=== PATIENT | male | born 1995 | race Caucasian/White ===

== ENCOUNTER 2018-07-22 23:58 | Inpatient (IN) | payer OTHER ==
[~2018-07-22] VITALS: Ht 185.4 cm; Wt 83.9 kg
[2018-07-23] VITALS (12 sets, daily range): BP systolic 106–153; BP diastolic 59–95
[2018-07-23 00:23] LABS: ABSOLUTE BASOPHILS 0.1 thou/uL (0.0-0.2); ABSOLUTE EOSINOPHILS 0.3 thou/uL (0.0-0.7); ABSOLUTE LYMPHOCYTES 1.6 thou/uL (0.8-5.3); ABSOLUTE MONOCYTES 0.8 thou/uL (0.0-1.2); ABSOLUTE NEUTROPHILS 6.1 thou/uL (1.6-8.1); EOSINOPHILS 3.9 %; HEMATOCRIT 47.9 % (42.0-52.0); HEMOGLOBIN 15.6 gm/dL (14.0-18.0); LYMPHOCYTES 17.9 %; MCH 27.4 pg (26.0-34.0); MCHC 32.5 g/dL (28.0-37.0); MCV 84.4 fL (80.0-100.0); MONOCYTES 8.6 %; MPV 7.3 fl. (7.2-11.1); NUCLEATED RBCS 0 /100WBC; PLATELET COUNT* 340 thou/uL (150-400); POLYS 68.6 %; RBC 5.67 mil/uL (4.50-6.00); WBC 8.9 thou/uL (4.0-11.0)
[2018-07-23 00:32] LABS: CALCIUM 8.6 mg/dL (8.5-10.1); CREATININE 0.8 mg/dL (0.6-1.3); POTASSIUM 4.1 mmol/L (3.5-5.1)
[2018-07-23 00:37] LABS: ALBUMIN 3.9 g/dL (3.4-5.0); MAGNESIUM 1.7 mg/dL (1.8-2.4); TOTAL BILIRUBIN 0.6 mg/dL (<0.1-1.0); TOTAL PROTEIN 7.9 g/dL (6.4-8.2)
[2018-07-23 01:10] LABS: URINE BILIRUBIN NEGATIVE (Negative); URINE BLOOD NEGATIVE (Negative); URINE CLARITY CLEAR; URINE COLOR YELLOW; URINE GLUCOSE-RANDOM NEGATIVE (Negative); URINE KETONES NEGATIVE (Negative); URINE LEUKOCYTES-REFLEX NEGATIVE (Negative); URINE NITRITE-REFLEX NEGATIVE (Negative); URINE PROTEIN NEGATIVE (Negative); URINE UROBILINOGEN 0.2 E.U./dl (0.2-1.0)
[2018-07-23 03:01] LABS: AMP/METHAMP Negative (Negative); BARBITURATES Negative (Negative); BENZODIAZEPINES Negative (Negative); COCAINE Negative (Negative); METHADONE Negative (Negative); OPIATES Negative (Negative); PCP Negative (Negative); THC POSITIVE (Negative)
[2018-07-23 03:22] LABS: PROTIME 9.9 Seconds (9.20-11.50)
[2018-07-23 03:37] LABS: PHOSPHORUS* 2.9 mg/dL (2.5-4.9)
[2018-07-23 03:38] LABS: AMMONIA < 10 umol/L (11-32)
--- NOTE | 2018-07-23 06:52 | NUR ---
Pt admitted from ED at 0245. Reports that he has been a heavy drinker since he was 16; drinks 1/5 of whiskey/tequila/cognac per day, or 24 beers per day. Reports he has had seizure before while withdrawing. Describes himself as functional alcoholic; is open about reporting his drinking habits. States he hopes to never drink again and requesting inpatient rehab once he discharges from the hospital because he has tried outpatient rehab before. States he is willing to take whatever time necessary to complete treatment and rehab. VSS. HR 40s-50s, SB. Will continue to monitor.
--- NOTE | 2018-07-23 07:10 | NUR ---
RN RESUMED CARE OF PT THIS AM. PT SLEEPING AT THIS TIME. VS STABLE. GOALS FOR TODAY INCLUDE MAINTAINING STABLE VS, KEEPING PT SAFE, AND MONITORING FOR SEIZURE AND ALCOHOL WITHDRAWAL.
--- NOTE | 2018-07-23 11:12 | NUR ---
Nutrition: Consult received for "wt loss 20# in 3 months." This is severe wt loss. Per ICU rounds, pt looks at a healthy wt. Pt stated he has h/o bulemia, but notrecently. He suffers form severe ETOHism, no insurance. Pt wants inpatient [facility]. Wt: 185#. Regular diet. Unintended wt loss R/T likely ETOHism AEB RN report in ICU rounds. RD will not order oral supplements at this time - pt appears at healthy wt. Mild risk. Poor nutrition-quality of life can be expected with ETOHism. RD will follow up on po intake, wt, labs, 07/28/18.
--- NOTE | 2018-07-23 11:27 | NUR ---
INTERDISICPLINARY ROUNDS: PT ADMITTED FROM [facility] W/ETOH WITHDRAWL. MET WITH PT AND S/O CONONR WHO HE PLANS TO RETURN HOME WITH. PT DROWSY, ABLE TO ANSWER SOME QUESTIONS. CONNOR ANSWERED MOST OF THEM. PT HAD BEEN LIVING WITH HIS GRANDMOTHER PRIOR TO ADMIT. CONNOR SAID FAMILY 'NOT SPEAKING WITH HIM RIGHT NOW.' PT ADMITS TO ETOH USE, WANTING TO STOP. PER CONNOR, HE HAS BEEN GOING TO OUTPT 3X/WK AT [facility] , MAY RETURN TO THAT, STATES IT HAS BEEN HELPFUL. SHE ALSO STATED THAT CLASSES HAD BEEN 'COURT ORDERED.' PT IS UNEMLOYED AT THIS TIME BUT JOB SEEKING. GAVE INFO AND DISCUSSED COMMUNITY RESOURCES, DRUG/ETOH RESOURCES AND F/U. CONNOR PLANS TO ASSIST PT WITH FINDING 'HELP.' SHE STATED SHE IS RECOVERING ALSO AND AWARE OF AREA RESOURCES.
--- NOTE | 2018-07-23 14:24 | NUR ---
PT TRANSFERRED TO ROOM 212. REPORT GIVEN TO RNJULIAN. PT VS STABLE. ATIVAN ADMINISTERED SCHEDULED AND PRN FOR ANXIETY. PT GIRLFRIEND AT BEDSIDE. PT TX WITH ALL BELONGINGS AND PAPER CHART. DENIES FURTHER QUESTIONS/CONCERNS.
--- NOTE | 2018-07-23 18:00 | NUR ---
PATIENT PROGRESSING TOWARDS GOALS. MOVED OUT OF ICU TODAY. CIWA SCORES CHARTED. VSS. ABLE TO SHOWER AND AMBULATE IN [place]. GIRLFRIEND IS PRESENT AND SUPPORTIVE
[2018-07-24 00:25] VITALS: BP 127/76
[2018-07-24 04:12] VITALS: BP 132/96
--- NOTE | 2018-07-24 04:15 | NUR ---
ASSUMED PT CARE AT 1930. ASSESSMENT COMPLETED CHARTED. ABLE TO MAKE NEEDS KNOWN. UP AD CLIFFORD, IVF INFUSING AT 100, PT CIWAS HAVE BEEN ABOUT 12-15 R/T N/V, AGITATION AND ANXIETY, A HEADACHE, AND TREMORS. PT IS BEGGING NOT TO GO BACK TO ICU. GAVE ATIVAN PER P.O. AND PRN FOR ANXIETY AND INCREASED CIWAS. GIRLFRIEND AT BEDSIDE. REFUSING ATIVAN AT TIMES STATING ITS NOT MAKING HIM SLEEP AND NOT WORKING. GETTING AGITATED WITH STAFF. WILL CONTINUE TO MONITOR.
[2018-07-24 05:33] LABS: CALCIUM 8.3 mg/dL (8.5-10.1); CREATININE 0.7 mg/dL (0.6-1.3); MAGNESIUM 1.9 mg/dL (1.8-2.4); PHOSPHORUS* 3.4 mg/dL (2.5-4.9); POTASSIUM 4.1 mmol/L (3.5-5.1)
[2018-07-24 05:36] LABS: ABSOLUTE BASOPHILS 0.1 thou/uL (0.0-0.2); ABSOLUTE EOSINOPHILS 0.2 thou/uL (0.0-0.7); ABSOLUTE LYMPHOCYTES 1.8 thou/uL (0.8-5.3); ABSOLUTE MONOCYTES 0.6 thou/uL (0.0-1.2); ABSOLUTE NEUTROPHILS 5.1 thou/uL (1.6-8.1); EOSINOPHILS 2.9 %; HEMATOCRIT 43.5 % (42.0-52.0); LYMPHOCYTES 22.7 %; MCH 27.5 pg (26.0-34.0); MCHC 32.3 g/dL (28.0-37.0); MCV 85.1 fL (80.0-100.0); MONOCYTES 7.8 %; MPV 7.9 fl. (7.2-11.1); NUCLEATED RBCS 0 /100WBC; PLATELET COUNT* 328 thou/uL (150-400); POLYS 65.6 %; RBC 5.11 mil/uL (4.50-6.00); RDW-CV 16.2 % (10.5-14.5); WBC 7.8 thou/uL (4.0-11.0)
[2018-07-24 08:00] VITALS: BP 131/86
--- NOTE | 2018-07-24 11:50 | NUR ---
VSS, ASSUMED CARE IN THE AM,ASSESSMENT PERFORMED AND CHARTED, FALL PRECAUTIONS IN PLACE NAD CALL LIGHT IN REACH, PT IS UP AD CLIFFORD ON RA AND TRACING SR ON THE MONITOR, PT DENIES ANY PAIN, PT HAS D/C ORDERS AT THIS TIME, I HAVE PRINTED, ORDERS, FILLED OUT ORDERS, AND REVIEWED D/C PLANS WITH PT, PT DENIES ANY QUESTIONS AT TIME OF D/C HOURLY ROUNDS COMPLETED, IV AND TELE MONITOR D/C
[2018-07-24 11:55] VITALS: BP 131/86
== END 2018-07-24 13:28 | disposition home or self-care (01) | DRG 103 ==
LOC: M.ERS 23:58 → M.TBA-ER 07-23 01:20 → M.ICU 07-23 02:02 → M.2W 07-23 14:24
PROVIDERS: Emergency Medicine; Internal Medicine; ADMIT Internal Medicine
DX: G43.A0 Cyclical vomiting, in migraine, not intractable (principal); F10.231 Alcohol dependence with withdrawal delirium; E86.0 Dehydration; F32.9 Major depressive disorder, single episode, unspecified; F17.210 Nicotine dependence, cigarettes, uncomplicated; F12.90 Cannabis use, unspecified, uncomplicated; Z79.899 Other long term (current) drug therapy

== ENCOUNTER 2021-04-11 04:35 | Emergency (ER) | payer OTHER ==
[~2021-04-11] VITALS: Ht 185.4 cm; Wt 94.8 kg
[2021-04-11 05:02] LABS: ABSOLUTE BASOPHILS 0.1 thou/uL (0.0-0.2); ABSOLUTE EOSINOPHILS 0.1 thou/uL (0.0-0.7); ABSOLUTE LYMPHOCYTES 3.2 thou/uL (0.8-5.3); ABSOLUTE MONOCYTES 0.5 thou/uL (0.0-1.2); ABSOLUTE NEUTROPHILS 2.6 thou/uL (1.6-8.1); BASOPHILS 1.3 %; EOSINOPHILS 1.1 %; HEMATOCRIT 47.1 % (42.0-52.0); HEMOGLOBIN 15.9 gm/dL (14.0-18.0); LYMPHOCYTES 49.7 %; MCH 28.4 pg (26.0-34.0); MCHC 33.8 g/dL (28.0-37.0); MCV 84.1 fL (80.0-100.0); MONOCYTES 7.6 %; MPV 7.1 fl. (7.2-11.1); NUCLEATED RBCS 0 /100WBC; PLATELET COUNT* 465 thou/uL (150-400); POLYS 40.3 %; RDW-CV 16.6 % (10.5-14.5); WBC 6.4 thou/uL (4.0-11.0)
[2021-04-11 05:11] LABS: CREATININE 0.8 mg/dL (0.6-1.3); POTASSIUM 4.1 mmol/L (3.5-5.1)
[2021-04-11 05:19] LABS: ALBUMIN 4.2 g/dL (3.4-5.0); MAGNESIUM 1.9 mg/dL (1.8-2.4); TOTAL BILIRUBIN 0.3 mg/dL (<0.1-1.0); TOTAL PROTEIN 7.9 g/dL (6.4-8.2)
[2021-04-11 13:19] VITALS: BP 109/59
== END 2021-04-11 13:20 | disposition still patient (30) ==
LOC: M.ERS 04:35
PROVIDERS: Emergency Medicine
DX: F10.129 Alcohol abuse with intoxication, unspecified (principal)

== ENCOUNTER 2021-09-03 23:27 | Emergency (ER) | payer OTHER ==
[~2021-09-03] VITALS: Ht 182.9 cm; Wt 88.5 kg
[2021-09-03 23:56] LABS: HEMOGLOBIN 17.8 gm/dL (14.0-18.0); MCH 28.8 pg (26.0-34.0); MCHC 33.1 g/dL (28.0-37.0); MPV 7.6 fl. (7.2-11.1); RBC 6.2 mil/uL (4.50-6.00); RDW-CV 16.6 % (10.5-14.5); WBC 6.9 thou/uL (4.0-11.0)
[2021-09-04 00:25] LABS: URINE BILIRUBIN NEGATIVE (Negative); URINE BLOOD NEGATIVE (Negative); URINE CLARITY CLEAR; URINE COLOR YELLOW; URINE GLUCOSE-RANDOM NEGATIVE (Negative); URINE KETONES NEGATIVE (Negative); URINE LEUKOCYTES NEGATIVE (Negative); URINE NITRITE NEGATIVE (Negative); URINE PROTEIN NEGATIVE (Negative); URINE SPECIFIC GRAVITY 1.015 (1.005-1.030)
[2021-09-04 00:33] LABS: CALCIUM 8.6 mg/dL (8.5-10.1); CREATININE 0.7 mg/dL (0.6-1.3)
[2021-09-04 00:35] LABS: POTASSIUM 4.1 mmol/L (3.5-5.1)
[2021-09-04 00:37] LABS: AMP/METHAMP Negative (Negative); BARBITURATES Negative (Negative); BENZODIAZEPINES Negative (Negative); COCAINE Negative (Negative); METHADONE Negative (Negative); OPIATES Negative (Negative); PCP Negative (Negative); THC POSITIVE (Negative)
[2021-09-04 00:38] LABS: ALBUMIN 4.4 g/dL (3.4-5.0); ALCOHOL 297 mg/dL (<10); SALICYLATE < 2.8 mg/dL (2.8-20.0); TOTAL BILIRUBIN 0.5 mg/dL (<0.1-1.0); TOTAL PROTEIN 8.6 g/dL (6.4-8.2)
[2021-09-04 00:39] LABS: ACETAMINOPHEN < 2 ug/mL (10-30)
[2021-09-04 11:05] VITALS: BP 129/77
--- NOTE | 2021-09-05 08:07 | EKG ---
[place] [address] ELECTROCARDIOGRAM REPORT Name: ABHISHEK DELUCA V Room: [facility]#: [id number] Admission: 09/03/21 Attend Phys: Discharge: 09/04/21 Date of : 89 Date of Service: 09/04/21 0003 Report #: [id number] THIS REPORT FOR: //name// [facility] ED Test Date: 2021-09-04 Test Time: 00:03:12 Pat Name: ABHISHEK DELUCA Department: Room: Gender: M Rn Delivery: : 1995 Requested By: Alison Cohen Order Number: [id number] MD: Luciano Mike Measurements Intervals [place] Rate: 65 P: 43 ME: 183 QRS: 84 QRSD: 108 T: 50 QT: 415 QTc: 432 Interpretive Statements Sinus rhythm ST elev, probable normal early repol pattern No previous ECG available for comparison Electronically Signed On 09-05-2021 8:06:53 CDT by Luciano Mike [email or web address] <ELECTRONICALLY SIGNED> By: Luciano Mike MD, FACC 09/05/21 0806 0003 0003 Luciano Mike MD, [facility] /EPI
== END 2021-09-04 11:07 | disposition home or self-care (01) ==
LOC: M.ERS 23:27
PROVIDERS: Personal Emergency Response Attendant
DX: T42.6X2A Poisoning by other antiepileptic and sedative-hypnotic drugs, intentional self-harm, initial encounter (principal); Z20.822 Contact with and (suspected) exposure to COVID-19; R42 Dizziness and giddiness; F10.129 Alcohol abuse with intoxication, unspecified; F32.9 Major depressive disorder, single episode, unspecified; F17.210 Nicotine dependence, cigarettes, uncomplicated; Y90.8 Blood alcohol level of 240 mg/100 ml or more; Y92.89 Other specified places as the place of occurrence of the external cause